=== PATIENT | female | born 1950 | race Caucasian/White ===

== ENCOUNTER 2021-08-04 13:54 | Emergency (ER) | payer BC, MEDICARE ==
[~2021-08-04] VITALS: Ht 190.5 cm; Wt 90.9 kg
[2021-08-04] MEDS ORDERED: IV NORMAL SALINE 1000ML BAG 1,000 ML IV SCH (14:30)
[2021-08-04 14:54] LABS: BASO # 0.1 x10^3/uL (0.0-0.2); BASO % 1 % (0-3); EOS # 0.1 x10^3/uL (0.0-0.7); EOS % 1 % (0-3); HEMATOCRIT 40.3 % (36.0-47.0); HEMOGLOBIN 13.8 g/dL (12.0-15.5); LYMPH # 1.3 x10^3/uL (1.0-4.8); LYMPH % 17 % (24-48); MEAN CORPUSCULAR HEMOGLOBIN 29 pg (25-35); MEAN CORPUSCULAR HGB CONC 34 g/dL (31-37); MEAN CORPUSCULAR VOLUME 86 fL (79-100); MONO % 13 % (0-9); NEUT # 5.5 x10^3/uL (1.8-7.7); NEUT % 68 % (31-73); PLATELET COUNT 298 x10^3/uL (140-400); RED BLOOD COUNT 4.68 x10^6/uL (3.50-5.40); RED CELL DISTRIBUTION WIDTH 12.9 % (11.5-14.5); WHITE BLOOD COUNT 8.1 x10^3/uL (4.0-11.0)
[2021-08-04 14:54] LABS: BACTERIA,URINE MODERATE /HPF (0-FEW); WBC,URINE 20-40 /HPF (0-4)
[2021-08-04 15:02] VITALS: BP 149/75
--- NOTE | 2021-08-04 15:03 | RAD ---
EXAMINATION: XR CHEST 1V CLINICAL HISTORY: Shortness of breath. EXAM DATE/TIME: 08/04/2021 2:56 PM COMPARISON: None FINDINGS: Lines, Tubes, and Devices: Left-sided dual-chamber cardiac pacemaker. Cardiomediastinal Silhouette: Normal heart size. Lungs and Pleura: Mild patchy opacities in the left greater than right lower lung zones. No evidence of pleural effusion. Pulmonary vasculature unremarkable. Bones and Soft Tissues: Degenerative changes in the thoracic spine. IMPRESSION: Mild patchy airspace disease and lower lung zones, possibly subsegmental atelectasis and/or scarring. Electronically signed by: Sung Johnson DO (08/04/2021 3:00 PM) ANITHA
[2021-08-04 15:06] LABS: CALCIUM 9.2 mg/dL (8.5-10.1); CREATININE 0.9 mg/dL (0.6-1.0); GFR 61.5; POTASSIUM 4.3 mmol/L (3.5-5.1)
[2021-08-04 15:12] LABS: ALBUMIN 3.1 g/dL (3.4-5.0); ALBUMIN/GLOBULIN RATIO 0.7 (1.0-1.7); TOTAL BILIRUBIN 0.4 mg/dL (0.2-1.0); TOTAL PROTEIN 7.7 g/dL (6.4-8.2)
[2021-08-04] MEDS ORDERED: SULF1TAB24 PO (15:53)
--- NOTE | 2021-08-04 15:58 | PHYS DOC ---
Past Medical History Past Surgical History: Knee Replacement, Pacemaker Additional Past Surgical Histo: BACK Smoking Status: Never Smoker Alcohol Use: None General Adult EDM: Chief Complaint: WEAKNESS/GENERALIZED HPI: HPI: Patient is a 70 year old female who presents with mild generalized weakness. Patient states that since she moved to [place] from [place] she has been feeling slightly weak. She was seen in emergency department about 1 week ago. Reportedly, no diagnosis was made. Patient states that today she stood up but felt mildly weak and sat back down. Patient states that this has not happened before. Patient reports no other symptoms. Patient states that her weakness is very mild and she is able to ambulate. She does not feel unsteady. Review of Systems: Review of Systems: Constitutional: Denies fever or chills. [] Eyes: Denies change in visual acuity. [] HENT: Denies nasal congestion or sore throat. [] Respiratory: Denies cough or shortness of breath. [] Cardiovascular: Denies chest pain or edema. [] GI: Denies abdominal pain, nausea, vomiting, bloody stools or diarrhea. [] : Denies dysuria. [] Musculoskeletal: Denies back pain or joint pain. [] Integument: Denies rash. [] Neurologic: Denies headache, focal weakness or sensory changes. [] Endocrine: Denies polyuria or polydipsia. [] Lymphatic: Denies swollen glands. [] Psychiatric: Denies depression or anxiety. [] Heart Score: C/O Chest Pain: No Risk Factors: Risk Factors: DM, Current or recent (<one month) smoker, HTN, HLP, family history of CAD, obesity. Risk Scores: Score 0 - 3: 2.5% MACE over next 6 weeks - Discharge Home Score 4 - 6: 20.3% MACE over next 6 weeks - Admit for Clinical Observation Score 7 - 10: 72.7% MACE over next 6 weeks - Early Invasive Strategies Current Medications: Current Medications Medications (Trade) Dose Ordered Sig/Juan Jose Start Time Stop Time Status Last Admin Dose Admin Ceftriaxone Sodium (Rocephin) 1 gm 1X ONCE 08/04/21 16:00 08/04/21 16:01 Sodium Chloride 1,000 ml @ 1,000 mls/hr Q1H 08/04/21 14:30 08/04/21 15:29 DC 08/04/21 14:34 1,000 MLS/HR Allergies: Allergies: Allergies Coded Allergies Type Severity Reaction Last Updated Verified No Known Drug Allergies 08/04/21 No Physical Exam: PE: Constitutional: Well developed, well nourished, no acute distress, non-toxic appearance. [] HENT: Normocephalic, atraumatic, bilateral external ears normal, oropharynx moist, no oral exudates, nose normal. [] Eyes: PERRLA, EOMI, conjunctiva normal, no discharge. [] Neck: Normal range of motion, no tenderness, supple, no stridor. [] Cardiovascular:Heart rate regular rhythm, no murmur [] Lungs & Thorax: Bilateral breath sounds clear to auscultation [] Abdomen: Bowel sounds normal, soft, no tenderness, no masses, no pulsatile masses. [] Skin: Warm, dry, no erythema, no rash. [] Back: No tenderness, no CVA tenderness. [] Extremities: No tenderness, no cyanosis, no clubbing, ROM intact, no edema. [] Neurologic: Alert and oriented X 3, normal motor function, normal sensory function, no focal deficits noted. [] Psychologic: Affect normal, judgement normal, mood normal. [] Current Patient Data: Labs: Laboratory Tests Test 08/04/21 14:10 08/04/21 14:30 Urine Collection Type Unknown Urine Color (Auto) Yellow Urine Turbidity Hazy Urine pH (Auto) 5.5 (<5.0-8.0) Urine Specific [place] 1.014 (1.000-1.030) Urine Protein (Auto) Negative mg/dL (Negative) Urine Glucose (Auto)(UA) Negative mg/dL (Negative) Urine Ketones (Auto) Negative mg/dL (Negative) Urine Blood (Auto) Trace (Negative) Urine Nitrite Positive (Negative) Urine Bilirubin (Auto) Negative (Negative) Urine Urobilinogen (Auto) Normal mg/dL (Normal) Urine Leukocyte Esterase (Auto) Large (Negative) Urine RBC 1-2 /HPF (0-2) Urine WBC 20-40 /HPF (0-4) Urine Squamous Epithelial Cells Few /LPF Urine Bacteria Moderate /HPF (0-FEW) Urine Mucus Mod /LPF White Blood Count 8.1 x10^3/uL (4.0-11.0) Red Blood Count 4.68 x10^6/uL (3.50-5.40) Hemoglobin 13.8 g/dL (12.0-15.5) Hematocrit 40.3 % (36.0-47.0) Mean Corpuscular Volume 86 fL (79-100) Mean Corpuscular Hemoglobin 29 pg (25-35) Mean Corpuscular Hemoglobin Concent 34 g/dL (31-37) Red Cell Distribution Width 12.9 % (11.5-14.5) Platelet Count 298 x10^3/uL (140-400) Neutrophils (%) (Auto) 68 % (31-73) Lymphocytes (%) (Auto) 17 % (24-48) L Monocytes (%) (Auto) 13 % (0-9) H Eosinophils (%) (Auto) 1 % (0-3) Basophils (%) (Auto) 1 % (0-3) Neutrophils # (Auto) 5.5 x10^3/uL (1.8-7.7) Lymphocytes # (Auto) 1.3 x10^3/uL (1.0-4.8) Monocytes # (Auto) 1.0 x10^3/uL (0.0-1.1) Eosinophils # (Auto) 0.1 x10^3/uL (0.0-0.7) Basophils # (Auto) 0.1 x10^3/uL (0.0-0.2) Sodium Level 139 mmol/L (136-145) Potassium Level 4.3 mmol/L (3.5-5.1) Chloride Level 103 mmol/L (98-107) Carbon Dioxide Level 27 mmol/L (21-32) Anion Gap 9 (6-14) Blood Urea Nitrogen 15 mg/dL (7-20) Creatinine 0.9 mg/dL (0.6-1.0) Estimated GFR (Cockcroft-Gault) 61.5 BUN/Creatinine Ratio 17 (6-20) Glucose Level 103 mg/dL (70-99) H Lactic Acid Level 0.9 mmol/L (0.4-2.0) Calcium Level 9.2 mg/dL (8.5-10.1) Total Bilirubin 0.4 mg/dL (0.2-1.0) Aspartate Amino Transferase (AST) 17 U/L (15-37) Alanine Aminotransferase (ALT) 16 U/L (14-59) Alkaline Phosphatase 73 U/L (46-116) Troponin I High Sensitivity 15 ng/L (4-50) HB-Qvi-X-Type Natriuretic Peptide 780 pg/mL (0-124) H Total Protein 7.7 g/dL (6.4-8.2) Albumin 3.1 g/dL (3.4-5.0) L Albumin/Globulin Ratio 0.7 (1.0-1.7) L Laboratory Tests 08/04/21 14:30 Laboratory Tests 08/04/21 14:30 Vital Signs: Vital Signs Date Time Temp Pulse Resp B/P (MAP) Pulse Ox O2 Delivery O2 Flow Rate FiO2 08/04/21 15:02 84 149/75 (99) 97 Room Air 08/04/21 14:01 100.5 18 100.5 EKG: EKG: Sinus rhythm with left axis deviation Radiology/Procedures: Radiology/Procedures: Chest x-ray :mild patchy airspace disease in lower lung zones possibly sub-segmental atelectasis or scarring Impression: Weakness secondary to acute cystitis Course & Med Decision Making: Course & Med Decision Making Pertinent Labs and Imaging studies reviewed. (See chart for details) 70-year-old female seen and evaluated by myself. Vitals within normal limits, exam within normal limits. Blood and urine sent to the lab. Serum studies within normal limits, urinalysis with signs of urinary tract infection which would explain her weakness. Results were reviewed with the patient. Patient states that this is happened before with urinary tract infections. Patient comfortable with discharge as well as follow-up. Patient encouraged to make primary care physician appointment in the next week for recheck. ER precautions given to patient for return. Patient hemodynamically stable at time of discharge. All questions answered. Patient has family at home to take care of her. Dragon Disclaimer: Hortencia Disclaimer: This electronic medical record was generated, in whole or in part, using a voice recognition dictation system. Departure Departure Impression: Primary Impression: Acute cystitis Disposition: HOME / SELF CARE / HOMELESS Condition: GOOD Patient Instructions: Urinary Tract Infection, [id number] Additional Instructions: Take all of your antibiotics Drink plenty of fluids, especially water You may return to the emergency department if you are having new or recurrent symptoms Scripts Sulfamethoxazole/Trimethoprim (BACTRIM DS TABLET) 1 Each Tablet 1 TAB PO BID, #10 TAB Prov: FATOU NAVARRO MD 08/04/21 FATOU NAVARRO MD August 04, 2021 15:58
[2021-08-04] MEDS ORDERED: cefTRIAXone IV Push 1 GM VIAL. IVP ONE (16:00)
--- NOTE | 2021-08-04 19:52 | EKG ---
[facility] [address] [place] [address] Test Date: 2021-08-04 Test Time: 14:00:04 Pat Name: DELON PATIÑO Department: Room: Gender: F [employer] Attendant: : 1950 Requested By: FATOU Ritchie Number: [id number] Reading MD: Jesse Trinidad Measurements Intervals [place] Rate: 91 P: 85 [place]: 214 QRS: -69 QRSD: 194 T: 96 QT: 410 QTc: 506 Interpretive Statements ATRIAL-SENSED VENTRICULAR-PACED RHYTHM Electronically Signed On 08-06-2021 14:51:37 CDT by Jesse Trinidad
== END 2021-08-04 16:20 | disposition home or self-care (01) ==
LOC: ER 13:54
DX: N30.00 Acute cystitis without hematuria (principal); Z95.0 Presence of cardiac pacemaker
CPT/HCPCS: 36415; 71045; 80053; 81001; 83605; 83880; 84484; 85025; 87077; 87086; 87186; 93005; 96361; 96374; 99285; J0696; J7030